=== PATIENT | female | born 2005 | race Caucasian/White ===

== ENCOUNTER 2023-01-17 10:25 | Emergency (ER) | payer MEDICAID ==
[2023-01-17 10:46] VITALS: O2SAT 97
[2023-01-17 10:49] LABS: Absolute Neutrophil Ct (ANC) 7.14 x10^3/uL (1.4-6.9); BASOPHIL % 0.6 % (0.0-0.4); Basophil (Absolute #) 0.06 x10^3/uL (0-0.4); Eosinophil % 0.5 % (0.00-5.0); Eosinophil (Absolute #) 0.05 x10^3/uL (0-0.5); Hematocrit 42.2 % (35-47); IMMATURE GRAN # 0.03 x10^3u/L (0.00-0.03); IMMATURE GRAN % 0.3 % (0.00-0.4); Lymphocyte (Absolute #) 2.19 x10^3/uL (1.0-4.6); Lymphocytes % 21.6 % (24.0-44.0); Mean Cell Volume 85.9 fL (78-100); Mean Corpuscular Hemoglobin 28.5 pg (26-32); Mean Corpuscular Hgb Concent. 33.2 g/dL (32-36); Mean Platelet Volume 10.4 fL (7.5-11.0); Monocyte (Absolute #) 0.69 x10^3/uL (0.0-1.3); Monocytes % 6.8 % (0.0-12.0); Neutrophil % 70.2 % (36.0-66.0); Platelet Count 311 x10^3/uL (150-450); Red Blood Count 4.91 x10^6/uL (4.1-5.4); Red Cell Distribution Width 12.3 % (11.5-14.0); White Blood Count 10.2 x10^3/uL (4.0-10.5)
--- NOTE | 2023-01-17 11:05 | ERPHSYRPT ---
- History of Present Illness Historian: patient Exam Limitations: no limitations Patient Subjective Stated Complaint: Pt states that she has pressure in the upper medial chest that does not radiate and sometimes becomes sharper and it began this morning about an hour after she woke up Triage Nursing Assessment: Pt was brought to the ER by her mother, vitals wnl, rates chest pressure as 5/10, states that she had this one other time for about 2 days but did not seek medical attention, pulses normal, skin n/w/d, no difficulty with breathing, denies and medical issues, doesn't appear to be in any distress Physician History: 17 yo WF w mid-sternal chest pressure since 8AM. Pain is 5/10 and dies not radiate. Nothing makes the pain better or worse. Pain accompanied by N/diaphoresis wo vomting or dyspnea. She denies HTN/DM/hyperlipidemia/tobacco use/meth-cocaine use/cough/coryza. Similar pain 1 month ago. Timing/Duration: other (8AM) Activities at Onset: rest Quality: pressure Location: substernal Chest Pain Radiation: no radiation Severity of Pain-Max: severe Severity of Pain-Current: moderate Modifying Factors: Improves With: nothing Associated Symptoms: nausea, diaphoresis Nitro Today/Relief: no nitro taken today Aspirin Treatment Today: no aspirin today Allergies/Adverse Reactions: venom-honey bee [bee venom (honey bee)] Allergy (Severe, Verified 01/17/23 10:41) Swelling of Face Home Medications: Norgestimate-Ethinyl Estradiol [Sprintec 28 Day Tablet] 1 tab PO DAILY 01/17/23 [History] Hx Tetanus, Diphtheria Vaccination/Date Given: Yes Hx Influenza Vaccination/Date Given: No Hx Pneumococcal Vaccination/Date Given: No Travel Risk - International Travel Have you traveled outside of the country in past 3 weeks: No - Coronavirus Screening Are you exhibiting any of the following symptoms?: No Close contact with a COVID-19 positive Pt in past 14-21 Days: No - Vaccine Status Have you recieved a Covid-19 vaccination: No - Review of Systems Constitutional: No Symptoms Eyes: No Symptoms Ears, Nose, & Throat: No Symptoms Respiratory: No Symptoms Cardiac: No Symptoms, Chest Pain Abdominal/Gastrointestinal: No Symptoms Genitourinary Symptoms: No Symptoms Musculoskeletal: No Symptoms Skin: No Symptoms Neurological: No Symptoms Psychological: No Symptoms Endocrine: No Symptoms Hematologic/Lymphatic: No Symptoms Immunological/Allergic: No Symptoms - Past Medical History Pertinent Past Medical History: No - Past Surgical History Past Surgical History: No - Social History Smoking Status: Never smoker Exposure to second hand smoke: Yes Drug Use: none Patient Lives Alone: No - Female History Hx Last Menstrual Period: 01/17/2023 Hx Now: No - Nursing Vital Signs Nursing Vital Signs: Initial Vital Signs Temperature 97.5 F 01/17/23 10:31 Pulse Rate 66 01/17/23 10:31 Respiratory Rate 15 01/17/23 10:31 Blood Pressure 121/79 01/17/23 10:31 O2 Sat by Pulse Oximetry 100 01/17/23 10:31 Pain Scale Pain Intensity 5 WNL - Physical Exam General Appearance: no apparent distress Eye Exam: PERRL/EOMI, eyes nml inspection Ears, Nose, Throat Exam: normal ENT inspection, TMs normal, pharynx normal, mois t mucous membranes Neck Exam: normal inspection, non-tender, supple, full range of motion, No meningismus, No mass, No Brudzinski, No Kernig's, No carotid bruit Respiratory Exam: normal breath sounds, lungs clear, airway intact, No chest tenderness, No respiratory distress Cardiovascular Exam: regular rate/rhythm, normal heart sounds, normal peripheral pulses, capillary refill <2 sec, No murmur Gastrointestinal/Abdomen Exam: soft, normal bowel sounds, No tenderness Back Exam: normal inspection, normal range of motion, No CVA tenderness, No vertebral tenderness Extremity Exam: normal inspection, normal range of motion Neurologic Exam: alert, oriented x 3, cooperative, control systems specialist II-XII nml as tested, normal mood/affect, nml cerebellar function, nml station & gait, sensation nml Skin Exam: normal color, warm, dry Lymphatic Exam: No adenopathy SpO2 Interpretation: normal SpO2: 97 O2 Delivery: Room Air - Course EKG Interpreted by Me: RATE (NSR/Rate73/No acute ST segment changes/[place]) - Radiology Exams Chest X-ray Interpretation: Reviewed by me (CXR neg per Dr. Crowder) Ordered Tests: Active Orders 24 hr Category Date Time Status EKG-ER Only STAT Care 01/17/23 10:38 Active CHEST 1 VIEW (PORTABLE) Stat Exams 01/17/23 10:38 Completed CBC W DIFF Stat Lab 01/17/23 10:46 Completed CMP Stat Lab 01/17/23 10:46 Completed HCG QUALITATIVE, SERUM Stat Lab 01/17/23 10:46 Completed NT PRO BNPII Stat Lab 01/17/23 10:46 Completed PROTIME WITH INR Stat Lab 01/17/23 10:46 Completed PTT Stat Lab 01/17/23 10:46 Completed TROPONIN Q4H Lab 01/17/23 10:46 Completed TROPONIN Q4H Lab 01/17/23 14:45 Ordered TROPONIN Q4H Lab 01/17/23 18:45 Ordered Medication Summary Discontinued Medications Generic Name Dose Route Start Last Admin Trade Name Freq PRN Reason Stop Dose Admin Ketorolac Tromethamine 15 mg 01/17/23 11:38 01/17/23 11:43 Ketorolac Tromethamine 30 Mg/Ml Inj IV 01/17/23 11:39 15 mg STAT ONE Administration Ketorolac Tromethamine Confirm 01/17/23 11:42 Ketorolac Tromethamine 30 Mg/Ml Inj Administered 01/17/23 11:43 Dose 30 mg .ROUTE .STK-MED ONE Lab/Rad Data: Laboratory Result Diagrams 01/17/23 10:46 01/17/23 10:46 Laboratory Results 01/17/23 01/17/23 01/17/23 Range/Units 10:46 10:46 10:46 WBC (4.0-10.5) x10^3/uL RBC (4.1-5.4) x10^6/uL Hgb (12.0-16.0) g/dL Hct (35-47) % MCV (78-100) fL MCH (26-32) pg MCHC (32-36) g/dL RDW (11.5-14.0) % Plt Count (150-450) x10^3/uL MPV (7.5-11.0) fL Gran % (36.0-66.0) % Immature Gran % (Auto) (0.00-0.4) % Nucleat RBC Rel Count (0.00-0.1) % Eos # (Auto) (0-0.5) x10^3/uL Immature Gran # (Auto) (0.00-0.03) x10^3u/L Absolute Lymphs (auto) (1.0-4.6) x10^3/uL Absolute Monos (auto) (0.0-1.3) x10^3/uL Absolute Nucleated RBC (0.00-0.01) x10^3u/L Lymphocytes % (24.0-44.0) % Monocytes % (0.0-12.0) % Eosinophils % (0.00-5.0) % Basophils % (0.0-0.4) % Absolute Granulocytes (1.4-6.9) x10^3/uL Basophils # (0-0.4) x10^3/uL PT 9.8 (9.4-12.5) SECONDS INR 0.89 (0.8-3.0) APTT 27.3 (25.1-36.5) SECONDS Sodium (137-145) mmol/L Potassium (3.5-5.1) mmol/L Chloride (98-107) mmol/L Carbon Dioxide (22-30) mmol/L Anion Gap (5-15) MEQ/L BUN (7-17) mg/dL Creatinine (0.52-1.04) mg/dL Estimated GFR ML/MIN Glucose (74-106) mg/dL Calcium (8.4-10.2) mg/dL Total Bilirubin (0.2-1.3) mg/dL AST (14-36) U/L ALT (0-35) U/L Alkaline Phosphatase (38-126) U/L Troponin I < 0.012 (0.000-0.034) ng/mL NT-Pro-B Natriuret Pep (<300) pg/mL Serum Total Protein (6.3-8.2) g/dL Albumin (3.5-5.0) g/dL Serum HCG, Qual NEGATIVE (NEGATIVE) 01/17/23 01/17/23 Range/Units 10:46 10:46 WBC 10.2 (4.0-10.5) x10^3/uL RBC 4.91 (4.1-5.4) x10^6/uL Hgb 14.0 (12.0-16.0) g/dL Hct 42.2 (35-47) % MCV 85.9 (78-100) fL MCH 28.5 (26-32) pg MCHC 33.2 (32-36) g/dL RDW 12.3 (11.5-14.0) % Plt Count 311 (150-450) x10^3/uL MPV 10.4 (7.5-11.0) fL Gran % 70.2 H (36.0-66.0) % Immature Gran % (Auto) 0.3 (0.00-0.4) % Nucleat RBC Rel Count 0.0 (0.00-0.1) % Eos # (Auto) 0.05 (0-0.5) x10^3/uL Immature Gran # (Auto) 0.03 (0.00-0.03) x10^3u/L Absolute Lymphs (auto) 2.19 (1.0-4.6) x10^3/uL Absolute Monos (auto) 0.69 (0.0-1.3) x10^3/uL Absolute Nucleated RBC 0.00 (0.00-0.01) x10^3u/L Lymphocytes % 21.6 L (24.0-44.0) % Monocytes % 6.8 (0.0-12.0) % Eosinophils % 0.5 (0.00-5.0) % Basophils % 0.6 (0.0-0.4) % Absolute Granulocytes 7.14 H (1.4-6.9) x10^3/uL Basophils # 0.06 (0-0.4) x10^3/uL PT (9.4-12.5) SECONDS INR (0.8-3.0) APTT (25.1-36.5) SECONDS Sodium 141 (137-145) mmol/L Potassium 3.8 (3.5-5.1) mmol/L Chloride 104 (98-107) mmol/L Carbon Dioxide 25 (22-30) mmol/L Anion Gap 15.1 H (5-15) MEQ/L BUN 8 (7-17) mg/dL Creatinine 0.61 (0.52-1.04) mg/dL Estimated GFR > 60.0 ML/MIN Glucose 99 (74-106) mg/dL Calcium 9.3 (8.4-10.2) mg/dL Total Bilirubin 0.70 (0.2-1.3) mg/dL AST 28 (14-36) U/L ALT 21 (0-35) U/L Alkaline Phosphatase 69 (38-126) U/L Troponin I (0.000-0.034) ng/mL NT-Pro-B Natriuret Pep 103 (<300) pg/mL Serum Total Protein 8.7 H (6.3-8.2) g/dL Albumin 4.6 (3.5-5.0) g/dL Serum HCG, Qual (NEGATIVE) - Progress Progress Note: 01/17/23 11:49 Nursing note and vital signs reviewed No food or housing insecurities noted Heart Score 0.0 Well's Score for PE 0.0 15mg IV Toradol before discharge All lab results reviewed and shared w pt CXR result reviewed and shared w pt Counseled pt/family regarding: lab results, diagnosis, need for follow-up, rad results Medical Desision Making - Diagnostic Testing Radiological Interpretation: Reviewed by me - Risk of complications Low Risk: Low risk of morbidity from additional dx testing or treatment - Departure Departure Disposition: Home Clinical Impression: Chest pain Condition: Stable Critical Care Time: No Instructions: Chest Pain (DC) Additional Instructions: Follow up with your family MD [place]/Tylenol for pain Return to ER for increasing pain or shortness of breath
[2023-01-17 11:06] LABS: INR 0.89 (0.8-3.0); PROTIME 9.8 SECONDS (9.4-12.5); PTT 27.3 SECONDS (25.1-36.5)
[2023-01-17 11:14] LABS: HCG SERUM TEST NEGATIVE (NEGATIVE)
[2023-01-17 11:15] LABS: ALBUMIN 4.6 g/dL (3.5-5.0); ALKALINE PHOSPHATASE 69 U/L (38-126); ANION GAP 15.1 MEQ/L (5-15); BLOOD UREA NITROGEN 8 mg/dL (7-17); CHLORIDE 104 mmol/L (98-107); Calcium 9.3 mg/dL (8.4-10.2); Carbon Dioxide 25 mmol/L (22-30); Creatinine 1 0.61 mg/dL (0.52-1.04); EST GLOMERULAR FILTRATION RATE > 60.0 ML/MIN; Glucose 99 mg/dL (74-106); NT PRO BNPII 103 pg/mL (<300); Potassium 3.8 mmol/L (3.5-5.1); SGOT/AST 28 U/L (14-36); SGPT/ALT 21 U/L (0-35); SODIUM 141 mmol/L (137-145); Total Protein 8.7 g/dL (6.3-8.2)
[2023-01-17] MEDS ORDERED: TORAdol 30 mg Injection IV ONE (11:38)
--- NOTE | 2023-01-17 11:38 | XRAY ---
Indication: Chest pain. Comparison: None Portable chest demonstrates normal heart, lungs, and bony thorax.
[2023-01-17] MEDS ORDERED: TORAdol 30 mg Injection ONE (11:42)
[2023-01-17 11:49] VITALS: BP 111/63; PULSE 64
== END 2023-01-17 12:00 | disposition home or self-care (01) ==
LOC: ED 10:25
DX: R07.9 Chest pain, unspecified (principal); R11.0 Nausea; Z28.310 Unvaccinated for COVID-19
CPT/HCPCS: 36415; 71045; 80053; 83880; 84484; 84703; 85025; 85610; 85730; 93005; 96374; 99284; J1885